=== PATIENT | male | born 2005 | race Caucasian/White ===

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

== ENCOUNTER 2024-01-05 16:47 | Outpatient (CLI) | payer BC, SELFPAY ==
--- NOTE | 2024-01-05 16:48 | MR_ITS ---
FINAL REPORT CLINICAL HISTORY: recurrent cervical straiN COMPARISON: None FINDINGS: Multiplanar MR imaging of the cervical spine was performed without contrast. There is motion on many sequences which somewhat limits overall image quality. On the sagittal T2-weighted images, disc degeneration is seen at multiple levels. There is no evidence of fracture. The vertebral alignment is normal. The cervical spinal cord has an unremarkable appearance without evidence of mass, edema or syrinx. No significant canal stenosis is identified. The cervicomedullary junction is normal. C2-3: There is no significant canal stenosis or neural foraminal narrowing. C3-4: There is no significant canal stenosis or neural foraminal narrowing. C4-5: An annular bulge is present. There is no evidence of significant canal stenosis or neural foraminal narrowing. C5-6: An annular bulge is present with a left paracentral disc protrusion which mildly indents the thecal sac. C6-7: An annular bulge is present with a left paracentral disc protrusion that mildly indents the thecal sac. C7-T1: There is a small central disc protrusion which mildly indents the thecal sac. IMPRESSION: Mild degenerative change in the lower cervical spine, without evidence of significant canal or neural foraminal stenosis. Reviewed, Interpreted and Dictated by Alli Márquez III, MD Transcribed by Monse Dia Authenticated and [facility]
== END 2024-01-05 23:59 | disposition home or self-care (01) ==
LOC: RAD 16:47
PROVIDERS: PCP Family Medicine; Visit Provider Family Medicine
DX: M54.2 Cervicalgia (principal); S16.1XXA Strain of muscle, fascia and tendon at neck level, initial encounter
CPT/HCPCS: 72141

== ENCOUNTER 2024-03-01 13:21 | Emergency (ER) | payer BC, SELFPAY ==
[2024-03-01 13:37] VITALS: BP 0/0; PULSE 0; RESP 0; TEMP -17.7; TEMP 0; O2SAT 0
== END 2024-03-01 13:39 | disposition left against medical advice (07) ==
LOC: UTC 13:24
PROVIDERS: Emergency Provider Nurse Practitioner; PCP Internal Medicine Adolescent Medicine
DX: Z53.21 Procedure and treatment not carried out due to patient leaving prior to being seen by health care provider (principal)

== ENCOUNTER 2024-03-17 14:00 | Outpatient (RCR) | payer BC, SELFPAY ==
--- NOTE | 2024-02-10 18:19 | HMH.PTOPEV ---
PT Outpatient Evaluation Rehab PT Outpatient Evaluation Start: 02/10/24 15:02 Freq: Status: Active Protocol: Document 02/10/24 15:02 YOVANYTREY (Rec: 02/10/24 18:19 CARLA [id number]) E-signed By Ana Luisa Caraballo, PT Outpatient Therapy Subjective History Subjective History Pt is a 18 y/o male who reports onset of neck & upper back pain ~2 months ago. Pt reports he was brushing his hair with his left hand while his head was tilted to the side and he felt a painful pop of his neck. Pt reports he experienced a brief cold chill of his L arm and leg, his neck dropped to the side with severe stiffness of his whole body. Pt reports he experienced stiffness of his neck and numbness/tingling of his left arm to his hand for 2 -3 days. Pt reports he went to the ED on 12/24/[address] he had a CT scan of his neck with impression of No fracture or malalignment. Pt reports he saw a chiropractor who manipulated his neck with short-term improvement in symptoms. Pt reports overall gradual improvement of symptoms although he is very fearful or reinjuring his neck so he has been taking it easy. Pt reports continued pain at the base of his neck that refers to mid shoulder blade region described as an ache and stiffness. Pt denies current paresthesia or distal UE symptoms. Pt does report continued symptoms with prolonged sitting/standing/ walking, looking up, looking behind him, and lifting >20lbs . Pt reports pain is worse at night time and has difficulty getting comfortable to sleep. Pt had a cervical spine MRI on 01/05/24 with impression of Mild degenerative change in the lower cervical spine, without evidence of significant canal or neural foraminal stenosis. Pt reports he was prescribed muscle relaxers he was taking as needed, states he has not taken them recently. Pt denies further comorbidities to report. Pt demonstrates fear-avoidance behaviors and muscle guarding /tension throughout the initial evaluation Negative myoclonus New diagnosis of cancer in past 12 No months? Chief Complaint Pain,Stiff Symptom Type Ache,Dull Symptoms Relieved By Rest/Positioning Symptoms Aggravated By Sitting,Standing,Physical Activity Current Functional Limitations Lifting,Sleeping,Standing, Sitting Symptom Description Constant but Variable Level of pain today (0-10) 1 Pain scale - at its best (0-10) 1 Pain scale - at its worst (0-10) 5 Cervical Eval Palpation Cervical Muscles L Cervical Paraspinal,L Suboccipital,L CT Junction,L Thoracic Paraspinals Cervical/Thoracic Palpation Findings Tenderness,Muscle Guarding Flexibility Deficits Upper Trapezius Muscle Length (R) Moderate Tightness,(L) Moderate Tightness Levaetor Scapulae Muscle Length (R) Moderate Tightness,(L) Moderate Tightness Pectoralis Major Muscle Length (R) Mild Tightness,(L) Mild Tightness Pectoralis Minor Muscle Length (R) Mild Tightness,(L) Mild Tightness Passive Joint Mobility Cervical PIVM Dec: R C5/6 L C5/6 R C6/7 L C6/7 AROM Cervical Spine Extension Active Range of 30 Motion (degrees) Cervical Spine Flexion Active Range of 45 Motion (degrees) Cervical Spine Right Lateral Flexion 35 Active Range of Motion (degrees) Cervical Spine Left Lateral Flexion 35 Active Range of Motion (degrees) Cervical Spine Right Rotation Active 55 Range of Motion (degrees) Cervical Spine Left Rotation Active 50 Range of Motion (degrees) MMT Bilateral Deltoid (C5) 4 Good Biceps Brachii Strength Grade 5 Normal Wrist Extension Strength Grade 5 Normal Triceps Brachii Strength Grade 5 Normal Wrist Flexion Strength Grade 5 Normal Extensor Pollicis Longus Strength Grade 5 Normal Finger Abduction Strength Grade 5 Normal DTR Rt Biceps 2+ Lt Biceps 2+ Rt Brachioradialis 2+ Lt Brachioradialis 2+ Rt Triceps 2+ Lt Triceps 2+ Altered Sensation Bilateral Comment equal and intact to light touch sensation bilaterally Special Test C-Spine Foraminal Compression ([place]) Positive Left Test C-spine Verterbral Accessory Movements Central P/A Crow[place],Left P/A that Elicit Symptoms Crowley C-Spine Compression Test Positive Left Shoulder/Elbow Eval Shoulder Objective Measurements Shoulder MMT Bilateral Lower Trapezius Strength Grade 3+ Fair+ Middle Trapezius Strength Grade 4- Good- Rhomboids Strength Grade 4- Good- Serratus Anterior Strength Grade 4- Good- Upper Trapezius/Levator Scapulae 4 Good Elbow Objective Measurements Neck Disability Index Neck Disability Index Section 1: Pain Intensity The pain is very mild at moment Section 2: Personal Care (washing, I can look after myself dressing, etc.) normally without causing extra pain Section 3: Lifting I can lift heavy weights but it gives extra pain Section 4: Reading I can read as much as I want to with no pain in my neck Section 5: Headaches I have no headaches at all Section 6: Concentration I can concentrate fully when I want to with no difficulty Section 7: Work I can only do my usual work, but no more Section 8: Driving I can drive my car as long as I want with slight pain in my neck Section 9: Sleeping My sleep is slightly disturbed (less than 1 hr sleepless) Section 10: Recreation I am able to engage in all my recreation activities with some pain in NDI Score 6 Outpatient Therapy Assessment Impairments Problems/Impairmments Palpation Tenderness,Impaired Range of Motion,Impaired Strength,Impaired Standing, Impaired Sitting,Impaired Driving,Impaired Lifting, Impaired Recreational Activities,Impaired Work Activities,Impaired Desk/ Computer Activities,Subjective C/O Pain,Impaired Self Care/ Self Management Prognosis Rehab Potential Good Comment barriers to progress include fear-avoidance behavior Clinical Impression Consistent with Diagnosis Yes Short Term Goals Number of Weeks 2 Improve Self Care/Self Management Yes Patient to be Ind w/ HEP Yes Jail Goals Number of Weeks 4-6 Decreased Palpation Tenderness Yes Increase Range of Motion Yes: Improve cervical AROM ext to 45, LF to 45 & rot to 60- 70 Increase Strength Yes: Improve scapular strength to 4-4+/5 grossly to assist with function Restore Ability to Lift Objects to Waist Yes: proper mechanics to Level assist with return to work Improve Neck Disability Index Score Yes Decrease Subjective C/O Pain Yes: Improve pain at worst to 2/10 to improve overall QOL Outpatient Therapy Plan of Care Treatment Plan May Include Therapeutic Exercise Including Home Yes Exercise Program Manual Therapy Techniques Yes Neuromuscular Re-education Yes Therapeutic Activities to Return to Yes Previous Functional/Work Level ADL/Self Care Education Yes Mechanical Traction Yes Dry Needling Yes Thermal Modalities Yes Electrical Stimulation Yes Ultrasound/Phonophoresis Yes Iontophoresis Yes Massage Yes Eval/Re-Eval Yes Frequency Times per week 2 Duration Number of Weeks 4-6 Addendums This patient is a candidate for social No or vocational rehab? Patient/Guardian verbally acknowledges Yes understanding of treatment program and consents to further treatment? Patient/Guardian verbally acknowledges Yes understanding of diagnosis, prognosis and goals for treatment? Eval Complexity PT Charges 77202 - Low Complexity PHYSICIAN CERTIFICATION: I certify the specified therapy services for Evelio Green are required, authorized, and reviewed every 30 days.
--- NOTE | 2024-03-15 15:47 | HMH.RHREAS ---
Rehab Reassessment Rehab OP Re-assessment Start: 02/10/24 15:02 Freq: Status: Active Protocol: Document 03/15/24 14:22 ERICKLOUIS (Rec: 03/15/24 15:46 WENDYFela [id number]) E-signed By Ana Luisa Caraballo PT Neck Disability Index Neck Disability Index Section 1: Pain Intensity The pain is moderate at the moment Section 2: Personal Care (washing, I can look after myself dressing, etc.) normally but it causes extra pain Section 3: Lifting I can only lift very light weights Section 4: Reading I can read as much as I want to with no pain in my neck Section 5: Headaches I have no headaches at all Section 6: Concentration I can concentrate fully when I want to with no difficulty Section 7: Work I can do most of my usual work , but no more Section 8: Driving I can drive my car as long as I want with slight pain in my neck Section 9: Sleeping My sleep is midly disturbed (1 -2 hrs sleepless) Section 10: Recreation I am able to engage in all my recreation activities with some pain in NDI Score 13 Rehab Re-assessment Subjective Subjective Pt reports he feels 90% improved since starting PT in regards to neck pain. Pt reports only 2/10 neck pain at worst that only occurs when his neck pops at times during cervical rotation. Pt reports continued L medial shoulder blade pain that he rates as a 6/10 at worst. Pt reports this pain is aggravated by end range elevation, lifting and sleeping. Pt describes pain as soreness with his arm feeling heavy during overhead reaching and lifting. Pt denies numbness or tingling. Pt reports prior to onset of neck pain he does recall an accident involving tripping while carrying a 50lb bag of chicken feed over his shoulder causing him to strain his left shoulder blade. Pt reports overall compliance with HEP with good tolerance. Objective Objective Notes Palpation: 1/4 TTP of C5-6, C6 -7; 2/4 TTP of medial border of L shoulder blade, rhomboids and upper-mid thoracic spine Cervical AROM: flex 50, ext 50 , RLF 60, LLF 60, Rrot 70, Lrot 70 Shoulder AROM: WNL with L medial shoulder blade pain at end range flexion/abduction with no significant winging noted LUE MMT: 4-/5 grossly with pain during resisted testing of scapular musculature ( rhomboids, lower trapezius) Assessment Assessment Notes Pt has attended 5 PT treatment sessions since his initial evaluation on 02/10/24. Pt demonstrated improved cervical AROM and tenderness to palpation this date; however, reports continued moderate left medial shoulder blade pain with reaching overhead and lifting. Pt demonstrated tenderness to palpation of the upper-middle thoracic spine and surrounding msuculature and weakness of the scapular musculature due to pain. Overall, the pt would continue to benefit from skilled PT to further improve subjective report of pain, UE/scpaular strength and functional activity tolerance to assist with return to PLOF and work. Patient goals met ST LT/6 Goals Not Met strength, lifting, NDI, pain at worst Revised Goals n/a Plan Plan Continue initial POC Frequency of Therapy 2x/week Duration of therapy 4 more weeks Time and Billing Re-Eval Time 26 Re-Eval Billing Units 1 PHYSICIAN CERTIFICATION: I certify the specified therapy services for Evelio Green are required, authorized, and reviewed every 30 days.
== END 2024-03-17 14:05 | disposition home or self-care (01) ==
LOC: PT 14:00
PROVIDERS: Visit Provider Family Medicine
DX: M54.2 Cervicalgia (principal); S16.1XXA Strain of muscle, fascia and tendon at neck level, initial encounter
CPT/HCPCS: 97014; 97035; 97110; 97163; 97164; G0283

== ENCOUNTER 2025-02-14 12:17 | Emergency (ER) | payer BC, SELFPAY ==
--- NOTE | 2025-02-14 12:19 | XR_ITS ---
FINAL REPORT CLINICAL HISTORY: shortness of breath COMPARISON: None FINDINGS: CHEST 1 VIEW No acute pulmonary opacity is present. There is no evidence of effusion or pneumothorax. Mediastinum is unremarkable. Heart size is normal. IMPRESSION: No acute abnormality. Reviewed, Interpreted and Dictated by Edis Paulino MD Transcribed by Ginna Garrido Authenticated and [facility]
[2025-02-14 12:21] VITALS: BP 121/65; PULSE 94; RESP 20; TEMP 37.2; O2SAT 99; BMI 21.8
--- NOTE | 2025-02-14 12:21 | ECG_ITS ---
APPROVED REPORT Exam: Resting ECG HR:90 bpm ECG Measurements Heart Rate 90 AXES MD 97 P 53 QRSd 97 QRS 84 QT 328 T 1 QTc 375 Conclusion SINUS RHYTHM WITH SINUS ARRHYTHMIA WITH SHORT MD INTERVAL BORDERLINE ECG UNCONFIRMED REPORT Electronically signed by : REGINALD BARR, 02/14/2025 23:43:43
--- NOTE | 2025-02-14 12:22 | [facility].EDGENADL ---
Discharge Plan Disposition Patient Disposition: Home, Self-Care Prescriptions Prescriptions: New prednisone 20 mg tablet 40 mg PO DAILY 5 Days Qty: 10 0RF Referrals Follow up/Referrals: Provider,Referral, MD [Primary Care Provider, Medical] - See instructions Activity Restrictions/Add. Instructions Additional Instructions/Restrictions: It is possible that you had an allergic reaction today. I am prescribing a 5-day course of steroids. If you develop any new or worsening symptoms, such as worsening chest pain, shortness of breath, difficulty swallowing, rash, vomiting, muffling of your voice, diarrhea or abdominal pain, call 911 as this could be a sign of a severe allergic reaction called anaphylaxis. 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 Patient states that he and his significant other recently moved into a new home. He woke up this morning and had a mild headache and felt progressively more short of breath throughout the morning. He states that his spouse then noticed some black mold on his pillow. He states that his shortness of breath is worsened since then. He denies any chest pain. He states that he is hard of breathe. He is able to tolerate his secretions. He has not noticed any rash. He has not had any vomiting. On arrival, patient is normotensive, borderline tachycardic with heart rate of 94 bpm, breathing 20 times a minute, oxygen saturation 99% on room air. Afebrile. Physical exam, as stated above, revealed a very anxious. 19-year-old male. He is speaking in full sentences. Cardiopulmonary exam reveals no murmurs, wheezing, rales or rhonchi. No rashes are appreciated. Abdomen without distention tenderness or peritonitis. Oral exam showed no posterior oropharyngeal swelling, no muffled voice, no swelling in the sublingual area. Remainder of his exam is grossly unremarkable. Related Data Previous Rx's ?Medication ?Instructions ?Recorded prednisone 20 mg tablet 40 mg (2 x 20 mg) PO DAILY 5 days 02/14/25 #10 tabs Allergies Allergy/AdvReac Type Severity Reaction Status Date / Time No Known Allergies Allergy Verified 04/09/24 09:45 [facility] Disclaimer: The information contained in this section may have been updated after the patient was seen, as this information can be updated by other users. Medical History Repetitive strain injury of cervical spine Cervical strain, acute recurrent Social History Smoking Status: Current every day smoker alcohol intake: never current occupational status: other Travel in the last 8 weeks?: None Have you lived/traveled outside [place] in past 30 days?: No Contact w/someone who lives/traveled outside [place] past 30 days?: No Exposure to someone with infectious disease in past 14 days?: No Do you have a fever (greater than 100.4 F or 38 C)?: No Have you tested positive for COVID-19?: No Exposed to someone with COVID-19 in past 14 days?: No Do you have a sore throat?: No Do you have a cough?: No Do you have any weakness?: No Do you have any diarrhea?: No Are you experiencing any unusual bleeding?: No Do you have any muscle aches/pain?: No Do you have any abdominal pain?: No Are you experiencing loss of taste or smell?: No Other Medical History Have you received the Pneumonia Vaccine: No ROS Obtained: Yes Systems reviewed as appropriate & no additional complaints except as documented Physical Exam General General appearance: alert, in no apparent distress and anxious Head Head exam: atraumatic Eye Eye exam: Present normal appearance ENT ENT exam: Present normal external ear exam Neck Neck exam: Present full ROM Chest Chest inspection: Present symmetric chest wall rise Respiratory Respiratory exam: Present normal lung sounds bilaterally and respiratory distress (Mild increased work of breathing but speaking in full sentences); Absent wheezes or stridor Cardiovascular Cardiovascular exam: Present regular rate and normal rhythm Abdominal Exam Abdominal exam: Present soft; Absent tenderness or guarding exam: Present deferred Extremities Exam Extremities exam: Present normal inspection Back Exam Back exam: Present normal inspection Neurological Exam Neurological exam: Present alert and oriented X3 Psychiatric Psychiatric exam: Present normal affect Skin Skin exam: Present warm and dry Medical Decision Making Medical Records Screening: Per USPSTF and CDC recommendations, given the prevalence of disease in our region, it is our hospital?s policy to screen for HIV and viral Hepatitis for all patients aged 18 and over and those with ongoing risk factors. Gautam Inquiry Pt receiving controlled substance: No Vital Signs: 02/14/25 12:21 02/14/25 12:26 02/14/25 13:00 Temperature 99 F Temperature Source Oral Pulse Rate [Left] 94 H Respiratory Rate 20 23 Blood Pressure 131/79 Blood Pressure [Right Arm] 121/65 Blood Pressure Mean [Right Arm] 83 Blood Pressure Source [Right Arm] Automatic Cuff 02 Sat by Pulse Oximetry 99 99 Oxygen Delivery Method Room Air Room Air Lab Data Lab Results 02/14/25 12:19: VBG pH 7.46 H, VBG pCO2 36.1, VBG pO2 34.0, VBG HCO3 24.8, VBG Total CO2 25.9, VBG O2 Saturation 72.8 H, VBG Base Excess 0.9, VBG Lactic Acid 2.5 H 02/14/25 12:24: WBC 7.2, RBC 5.21, Hgb 15.8, Hct 45.6, MCV 87.5, MCH 30.3, MCHC 34.6, RDW 12.4, Plt Count 279, MPV 10.4, Neut % (Auto) 82.8 H, Lymph % (Auto) 7.7 L, [place] % (Auto) 6.7, Eos % (Auto) 2.1, Baso % (Auto) 0.6, Neut # (Auto) 5.9, Lymph # (Auto) 0.6 L, [place] # (Auto) 0.5, Eos # (Auto) 0.2, Baso # (Auto) 0.0, D-Dimer 0.60 H, Sodium 140, Potassium 4.0, Chloride 104, Carbon Dioxide 24, Anion Gap 16.0 H, BUN 10, Creatinine 1.00, Estimated Creat Clear 129, Estimated GFR 95, Est GFR ( Amer) 115, Glucose 102 H, Calcium 9.7, Total Bilirubin 0.8, AST 31, ALT 26, Alkaline Phosphatase 52, Troponin I < 0.01, Total Protein 8.3 H, Albumin 5.0, Globulin 3.3 H, Albumin/Globulin Ratio 1.5 02/14/25 12:24 02/14/25 12:24 Orders (Tests/Meds): ED MEDICATIONS Discontinued Medications Generic Name Dose Route Start Last Admin Trade Name Sukhwinder SIMMONS Reason Stop Dose Admin Diphenhydramine HCl 50 mg 02/14/25 12:19 02/14/25 12:30 Diphenhydramine 50mg/Ml Vial IV 02/14/25 12:20 50 mg ONCE ONE Administration Prednisone 60 mg 02/14/25 12:19 02/14/25 12:30 Prednisone 20mg Tab PO 02/14/25 12:20 60 mg ONCE ONE Administration ORDERS Category Date Time Status CXR --portable [XR chest portable] Stat Exams 02/14/25 12:19 Completed CBC w/Auto Diff [Complete Blood Count Auto Diff] Stat Lab 02/14/25 12:24 Completed CMP [Comprehensive Metabolic Panel] Stat Lab 02/14/25 12:24 Completed D-Dimer Stat Lab 02/14/25 12:24 Completed HIV Combo Stat Lab 02/14/25 12:24 Received Hepatitis C Ab Qual. W/ RFX Stat Lab 02/14/25 12:24 Received Troponin I Q3H Lab 02/14/25 15:30 Ordered Troponin I Q3H Lab 02/14/25 18:30 Ordered Troponin I Stat Lab 02/14/25 12:24 Completed VBG [Venous Blood Gas] Stat RT 02/14/25 12:19 Completed ECG Data Tracing #1: I reviewed this ECG and interpreted as documented below: Normal sinus rhythm with ventricular rate of [address] elevation or depression. No T wave inversions. 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 Patient states that he and his significant other recently moved into a new home. He woke up this morning and had a mild headache and felt progressively more short of breath throughout the morning. He states that his spouse then noticed some black mold on his pillow. He states that his shortness of breath is worsened since then. He denies any chest pain. He states that he is hard of breathe. He is able to tolerate his secretions. He has not noticed any rash. He has not had any vomiting. On arrival, patient is normotensive, borderline tachycardic with heart rate of 94 bpm, breathing 20 times a minute, oxygen saturation 99% on room air. Afebrile. Physical exam, as stated above, revealed a very anxious. 19-year-old male. He is speaking in full sentences. Cardiopulmonary exam reveals no murmurs, wheezing, rales or rhonchi. No rashes are appreciated. Abdomen without distention tenderness or peritonitis. Oral exam showed no posterior oropharyngeal swelling, no muffled voice, no swelling in the sublingual area. Remainder of his exam is grossly unremarkable. Differential diagnosis includes, but is not limited to: Allergic reaction, ACS, pericarditis, pulmonary embolism, pneumonia, pneumothorax. Low concern for anaphylactic reaction as patient is only short of breath without involvement of other organ systems. Will treat with 60 mg of oral prednisone and 50 mg of IV Benadryl for possible allergic reaction. Additional workup included: Chest x-ray, CBC, D-dimer, VBG with lactate, CMP, troponin Chest x-ray interpreted by me personally. No focal consolidation, no pneumothorax, no widened mediastinum, no enlargement of the cardiac silhouette. Unremarkable chest x-ray. See radiology report for details. Laboratory workup shows no leukocytosis, no anemia, platelets within normal limits. D-dimer is very mildly elevated at 0.6 and negative for pulmonary embolism based on YEARS criteria. VBG shows mild alkalosis with pH of 7.46 and pCO2 normal at 36.1, bicarb normal at 24.8. Mildly elevated lactate of 2.5. Electrolytes within normal limits. Anion gap is mildly elevated at 16, likely secondary to mildly elevated lactic acid. Liver enzymes within normal limits. Initial troponin less than 0.01. On reassessment, patient no longer symptomatic and is resting comfortably. He has remained stable on conveyor monitor. Given this, is felt that he is appropriate for discharge at this time with a course of steroids for possible allergic reaction. Patient was given strict return precautions for any signs or symptoms of anaphylaxis and to call 911 immediately. All questions were answered. He and significant other at bedside demonstrated understanding and were in agreement this plan. Significant other will be driving them home. He was then discharged from the emergency department in stable condition. Critical Care Critical Care Time Critical Care Time: No
[2025-02-14 12:26] VITALS: O2SAT 99
[2025-02-14 12:37] LABS: VBG HCO3 24.8 mmol/L (23-30); VBG PCO2 36.1 mmol/L (35-51); VBG PH 7.46 mmol/L (7.31-7.41); VBG PO2 34.0 mmol/L (28-40)
[2025-02-14 12:39] LABS: Lactate Venous 2.5 mmol/L (0.4-2.0)
[2025-02-14 12:42] LABS: Hematocrit 45.6 % (42.0-52.0); Hemoglobin 15.8 g/dL (14.1-18.0); Immature Granulocytes % 0.1 %; Mean Corpuscular HGB Conc 34.6 g/dL (31.8-35.4); Mean Corpuscular Hemoglobin 30.3 pg (27.0-31.2); Mean Corpuscular Volume 87.5 fl (80-94); Nucleated Red Blood Cells % 0 %; Platelet Count 279 K/mm3 (142-424); Red Blood Count 5.21 M/mm3 (4.60-6.20); Red Cell Distribution Width-SD 39.4 fL; White Blood Count 7.2 K/mm3 (4.5-13.0)
[2025-02-14 12:51] LABS: Alanine Aminotransferase 26 U/L (12-78); Albumin Level 5.0 g/dl (3.5-5.0); Albumin/Globulin Ratio 1.5 (1.1-1.8); Alkaline Phosphatase 52 U/L (38-126); Anion Gap 16.0 mEq/L (5-15); Aspartate Amino Transferase 31 U/L (17-59); Bilirubin,Total 0.8 mg/dl (0.2-1.3); Blood Urea Nitrogen 10 mg/dl (9-20); Calcium 9.7 mg/dl (8.4-10.2); Carbon Dioxide 24 mmol/L (22.0-30.0); Chloride 104 mmol/L (98-107); Creatinine Clearance Estimated 129 mL/min (50-200); Creatinine,Serum 1.00 mg/dl (0.66-1.25); Estimated Glomerular Filt Rate 95 ml/min (>60); GFR (African American) 115 ML/MIN (>60); Globulin 3.3 g/dL (1.3-3.2); Glucose 102 mg/dl (74-100); Potassium 4.0 mmoL/L (3.5-5.1); Sodium 140 mmol/L (136-145); Total Protein,Serum 8.3 g/dl (6.3-8.2)
[2025-02-14 12:56] LABS: D-Dimer 0.60 ug/mL (0.0-0.5)
[2025-02-14 13:00] VITALS: BP 131/79; RESP 23
[2025-02-14 13:04] LABS: Troponin I < 0.01 ng/ml (0.00-0.034)
[2025-02-14 13:35] VITALS: BP 128/75; PULSE 88; RESP 18; TEMP 36.7; O2SAT 99
[2025-02-14 13:42] LABS: Hepatitis C Ab Qual. W/ RFX NEGATIVE (Negative)
[2025-02-14 16:38] LABS: Reflex Lactic Add Lactic Reflex
== END 2025-02-14 13:40 | disposition home or self-care (01) ==
PROVIDERS: Emergency Provider Student in an Organized Health Care Education/Training Program
DX: R06.89 Other abnormalities of breathing (principal); R74.02 Elevation of levels of lactic acid dehydrogenase [LDH]; E87.3 Alkalosis; T78.40XA Allergy, unspecified, initial encounter
CPT/HCPCS: 71045; 80053; 82803; 84484; 85025; 85378; 86803; 87389; 93005; 96374; 99284; J1200

== ENCOUNTER 2025-04-24 12:08 | Emergency (ER) | payer BC, SELFPAY ==
[2025-04-24] VITALS (12 sets, daily range): BP systolic 110–143; BP diastolic 60–88; PULSE 62–110; RESP 16–18; TEMP 36.8; O2SAT 96–100; BMI 25.6
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
[2025-04-24 12:50] LABS: Hematocrit 43.3 % (42.0-52.0); Hemoglobin 14.9 g/dL (14.1-18.0); Immature Granulocytes % 0.2 %; Mean Corpuscular HGB Conc 34.4 g/dL (31.8-35.4); Mean Corpuscular Hemoglobin 30.4 pg (27.0-31.2); Mean Corpuscular Volume 88.4 fl (80-94); Nucleated Red Blood Cells % 0 %; Platelet Count 323 K/mm3 (142-424); Red Blood Count 4.90 M/mm3 (4.60-6.20); Red Cell Distribution Width-SD 41.0 fL; White Blood Count 11.1 K/mm3 (4.5-13.0)
[2025-04-24 12:59] LABS: Chloride 97 mmol/L (98-107)
[2025-04-24 13:00] LABS: Albumin Level 4.6 g/dl (3.5-5.0); Potassium 4.0 mmoL/L (3.5-5.1); Sodium 138 mmol/L (136-145)
[2025-04-24 13:02] LABS: Blood Urea Nitrogen 18 mg/dl (9-20); Creatinine Clearance Estimated 163 mL/min (50-200); Creatinine,Serum 0.90 mg/dl (0.66-1.25); Estimated Glomerular Filt Rate 108 ml/min (>60); GFR (African American) 130 ML/MIN (>60)
[2025-04-24 13:03] LABS: Alanine Aminotransferase 45 U/L (12-78); Albumin/Globulin Ratio 1.3 (1.1-1.8); Alkaline Phosphatase 57 U/L (38-126); Anion Gap 15.0 mEq/L (5-15); Aspartate Amino Transferase 39 U/L (17-59); Bilirubin,Total 1.3 mg/dl (0.2-1.3); Calcium 9.5 mg/dl (8.4-10.2); Carbon Dioxide 30 mmol/L (22.0-30.0); Globulin 3.6 g/dL (1.3-3.2); Glucose 96 mg/dl (74-100); Total Protein,Serum 8.2 g/dl (6.3-8.2)
[2025-04-24] MEDS: SODIUM CHLORIDE 0.9% 10ML SYR (RAD ONLY) 10 ML IV (13:14)
[2025-04-24] MEDS: 0.9 % SODIUM CHLORIDE 50 ML VIAL 100 ML IV (13:14)
[2025-04-24] MEDS: IOPAMIDOL-370 (76%);100ML BOTTLE 160 ML IV (13:15)
[2025-04-24] MEDS: FENTANYL 100MCG/2ML VIAL 50 MCG IV (13:43)
[2025-04-24] MEDS: ONDANSETRON 4MG/2ML VIAL 4 MG IV (13:43)
== END 2025-04-24 16:50 | disposition home or self-care (01) ==
PROVIDERS: Physician Assistant; Emergency Provider Student in an Organized Health Care Education/Training Program
DX: M25.551 Pain in right hip (principal); S30.811A Abrasion of abdominal wall, initial encounter; S50.811A Abrasion of right forearm, initial encounter; S60.512A Abrasion of left hand, initial encounter; F17.210 Nicotine dependence, cigarettes, uncomplicated; V27.49XA Other motorcycle driver injured in collision with fixed or stationary object in traffic accident, initial encounter
CPT/HCPCS: 70450; 70498; 71045; 71275; 72125; 72192; 73502; 73552; 73590; 73630; 74174; 80053; 85025; 96374; 96375; 99284; 99285; J2405; J3010; Q9967